=== PATIENT | female | born 1950 | race Hispanic/Latino ===

== ENCOUNTER 2018-10-26 05:33 | Day surgery (SDC) | payer OTHER ==
[~2018-10-26] VITALS: Ht 162.6 cm; Wt 39.5 kg
[~2018-10-26 05:33] MED LIST: ASPI-555 PO; AZAT50TA PO; CELE-84 PO; CHOL200074 PO; LINA145C PO; NIFE30TA91 PO; PRED2.5T PO; TRAM50TA4 PO; [UNRECOGNIZED DRUG - OTHER] PO
[2018-10-26] MEDS ORDERED: SODIUM CHLORIDE 0.9% 1000ML 1,000 ML IV ONE (05:50)
[2018-10-26 06:02] VITALS: BP 126/65
[2018-10-26] MEDS ORDERED: PROPOFOL 10 MG/ML 20ML VIAL IV ONE ×2 (06:34→07:00)
[2018-10-26 07:04] VITALS: BP 76/35
[2018-10-26 07:09] VITALS: BP 69/36
[2018-10-26 07:14] VITALS: BP 123/64
[2018-10-26 07:19] VITALS: BP 109/52
== END 2018-10-26 07:45 | disposition home or self-care (01) ==
LOC: DAH 05:33 → ENDO 05:33
PROVIDERS: ATTEND Internal Medicine
DX: D12.3 Benign neoplasm of transverse colon (principal); D12.0 Benign neoplasm of cecum; K29.50 Unspecified chronic gastritis without bleeding; K20.9 Esophagitis, unspecified; I73.00 Raynaud's syndrome without gangrene; M19.90 Unspecified osteoarthritis, unspecified site; F15.90 Other stimulant use, unspecified, uncomplicated; Z88.3 Allergy status to other anti-infective agents; Z86.010 Personal history of colon polyps; Z79.899 Other long term (current) drug therapy; Z98.890 Other specified postprocedural states; Z79.82 Long term (current) use of aspirin; Z83.3 Family history of diabetes mellitus; Z82.49 Family history of ischemic heart disease and other diseases of the circulatory system
CPT/HCPCS: 43239; 45380; 88305; 88312; A4606; J2704 ×2; J7030

== ENCOUNTER → 2020-10-30 | Outpatient (CLI) | payer OTHER ==
[~2020-10-30] MED LIST changes: -ASPI-555 PO; +ASPI-556 PO; +NIFE-40 PO; -NIFE30TA91 PO
== END | disposition home or self-care (01) ==
LOC: OIH 14:15
PROVIDERS: ATTEND Internal Medicine
DX: M85.842 Other specified disorders of bone density and structure, left hand (principal); M85.841 Other specified disorders of bone density and structure, right hand; M15.4 Erosive (osteo)arthritis